=== PATIENT | female | born 1940 | race Caucasian/White ===

== ENCOUNTER 2022-05-19 15:16 | Inpatient (IN) ==
[2022-05-19] MEDS ORDERED: HYDROmorphone 1 MG/1 ML SYRINGE IV STA ×2 (15:52→17:30)
[2022-05-19] MEDS: ONDANSETRON 4 MG/2 ML VIAL IV PRN (16:00)
[2022-05-19] MEDS ORDERED: ONDANSETRON 4 MG/2 ML VIAL IV STA (17:30)
[2022-05-19 17:35] LABS: Basophils # 0.1 10*3/uL (0.0-0.2); Basophils % 0.4 % (0.0-0.8); Eosinophils # 0.3 10*3/uL (0.0-0.87); Eosinophils % 1.6 % (0.00-10.9); Hematocrit 35.3 VOL% (35.7-47.0); Hemoglobin 12.4 GM/DL (12.0-16.0); Immature Granulocytes % 1.2 %; Lymphocytes # 2.3 10*3/uL (1.4-4.0); Lymphocytes % 13.5 % (21.3-54.2); Mean Corpuscular HGB Conc 35.1 GM/DL (32-36); Mean Corpuscular Volume 92.7 FL (87-102); Mean Platelet Volume 11.6 FL (9.6-12.0); Neutrophils % 77.3 % (38.7-73.9); Platelet Count 285 T/CUMM (130-400); Red Blood Count 3.81 MC/CUMM (3.8-5.5); White Blood Count 16.8 T/CUMM (4-12)
[2022-05-19 17:43] LABS: Albumin 3.9 G/DL (3.4-5.0); Bilirubin,Total 0.9 MG/DL (0.20-1.00); Calcium 9.7 MG/DL (8.5-10.1); Osmolality,Calculated 267.5 MOS/KG (273-304); Potassium 3.2 MMOL/L (3.5-5.1); Total Protein 7.9 G/DL (6.4-8.2)
[2022-05-19] MEDS ORDERED: ACETAMINOPHEN 325 MG TABLET PO PRN (17:52)
[2022-05-19] MEDS ORDERED: LACTATED RINGERS 1,000 ML IV SCH (18:00)
[2022-05-19] MEDS ORDERED: POTASSIUM CHLORIDE 20 MEQ TABLET PO ONE (18:15)
[2022-05-19 18:27] LABS: Thyroid Stimulating Hormone 9.52 uIU/ml (0.358-3.74)
[2022-05-19] MEDS ORDERED: ERTAPENEM 1,000 MG in SODIUM CHLORIDE 0.9% 100 ML IV SCH (21:00)
[2022-05-19] MEDS: DOCUSATE SODIUM 100 MG CAPSULE PO SCH (22:20)
[2022-05-19] MEDS: POTASSIUM CHLORIDE INJ 40 MEQ in LACTATED RINGERS 1,000 ML IV SCH (23:42)
[2022-05-20] MEDS: MORPHINE 2 MG/1 ML SYRINGE IV PRN ×4 (04:27→22:17)
[2022-05-20 05:44] LABS: Basophils % 0.4 % (0.0-0.8); Eosinophils # 0.3 10*3/uL (0.0-0.87); Eosinophils % 3.1 % (0.00-10.9); Hematocrit 34.6 VOL% (35.7-47.0); Immature Granulocytes % 0.5 %; Immature Granulocytes Absolute 0.05 #; Lymphocytes # 2.1 10*3/uL (1.4-4.0); Lymphocytes % 19.4 % (21.3-54.2); Mean Corpuscular HGB Conc 34.7 GM/DL (32-36); Mean Corpuscular Volume 92.5 FL (87-102); Mean Platelet Volume 10.7 FL (9.6-12.0); Monocytes # 0.9 10*3/uL (0.11-0.8); Monocytes % 8.5 % (1.7-12.7); Neutrophils % 68.1 % (38.7-73.9); Platelet Count 219 T/CUMM (130-400); Red Blood Count 3.74 MC/CUMM (3.8-5.5); Red Cell Distribution Width 12.1 % (9.3-17.3); White Blood Count 10.6 T/CUMM (4-12)
[2022-05-20 05:57] LABS: Calcium 8.9 MG/DL (8.5-10.1); Osmolality,Calculated 268.2 MOS/KG (273-304); Potassium 4.6 MMOL/L (3.5-5.1)
[2022-05-20] MEDS ORDERED: CLINDAMYCIN INJ 900 MG/50 ML PREMIX IV ONE (06:41)
[2022-05-20] MEDS: POTASSIUM CHLORIDE INJ 40 MEQ in LACTATED RINGERS 1,000 ML IV SCH (07:36)
[2022-05-20] MEDS: DOCUSATE SODIUM 100 MG CAPSULE PO SCH ×2 (09:19→20:30)
[2022-05-20] MEDS: PANTOPRAZOLE 40 MG TABLET PO SCH (09:19)
[2022-05-20] MEDS: LACTATED RINGERS 1,000 ML IV SCH ×2 (10:19→18:26)
[2022-05-20] MEDS: ONDANSETRON 4 MG/2 ML VIAL IV PRN ×2 (10:20→18:27)
[2022-05-20] MEDS ORDERED: DEXMEDETOMIDINE 200 MCG/2 ML VIAL ONE (10:33)
[2022-05-20] MEDS ORDERED: LIDOCAINE 1% 5 ML VIAL ONE (10:33)
[2022-05-20] MEDS ORDERED: DEXAMETHASONE 4 MG/1 ML VIAL ONE ×3 (10:33→11:58)
[2022-05-20] MEDS ORDERED: ROPIVACAINE 0.5% 30 ML VIAL ONE (10:33)
[2022-05-20] MEDS ORDERED: ACETAMINOPHEN INJ 1,000 MG/100 ML VIAL IV ONE ×2 (10:43→11:57)
[2022-05-20] MEDS ORDERED: LIDOCAINE 2% 5 ML VIAL ONE (10:43)
[2022-05-20] MEDS ORDERED: propofoL 200 MG/20 ML VIAL IV ONE (10:43)
[2022-05-20] MEDS ORDERED: SEVOFLURANE 1 UNIT/15 MINUTE INH ONE ×2 (10:43→12:31)
[2022-05-20] MEDS ORDERED: ONDANSETRON 4 MG/2 ML VIAL ONE (10:43)
[2022-05-20] MEDS ORDERED: diphenhydrAMINE CAP 25 MG CAPSULE PO PRN (11:20)
[2022-05-20] MEDS ORDERED: LACTATED RINGERS 1,000 ML IV SCH ×2 (11:30)
[2022-05-20] MEDS ORDERED: ePHEDrine 50 MG/ML VIAL ONE (11:39)
[2022-05-20] MEDS ORDERED: LACTATED RINGERS 1,000 ML IV ONE (12:25)
[2022-05-20] MEDS ORDERED: amLODIPine 5 MG TABLET PO ONE (13:30)
[2022-05-21 04:53] LABS: Basophils % 0.2 % (0.0-0.8); Eosinophils % 0.1 % (0.00-10.9); Hematocrit 31.9 VOL% (35.7-47.0); Immature Granulocytes % 0.5 %; Immature Granulocytes Absolute 0.06 #; Lymphocytes # 0.8 10*3/uL (1.4-4.0); Lymphocytes % 6.2 % (21.3-54.2); Mean Corpuscular HGB Conc 34.5 GM/DL (32-36); Mean Corpuscular Volume 93.8 FL (87-102); Mean Platelet Volume 11.6 FL (9.6-12.0); Monocytes # 0.8 10*3/uL (0.11-0.8); Monocytes % 5.7 % (1.7-12.7); Neutrophils % 87.3 % (38.7-73.9); Platelet Count 208 T/CUMM (130-400); White Blood Count 13.2 T/CUMM (4-12)
[2022-05-21] MEDS: FONDAPARINUX 2.5 MG/0.5 ML SYRINGE SUBCUT SCH (05:45)
[2022-05-21] MEDS: LEVOTHYROXINE 75 MCG TABLET PO SCH (05:45)
[2022-05-21] MEDS: LACTATED RINGERS 1,000 ML IV SCH ×2 (06:24→15:09)
[2022-05-21] MEDS: MORPHINE 2 MG/1 ML SYRINGE IV PRN (07:49)
[2022-05-21] MEDS ORDERED: amLODIPine 5 MG TABLET PO SCH (09:00)
[2022-05-21] MEDS: PANTOPRAZOLE 40 MG TABLET PO SCH (09:30)
[2022-05-21] MEDS: DOCUSATE SODIUM 100 MG CAPSULE PO SCH ×2 (09:30→20:43)
[2022-05-21] MEDS: MEMANTINE 10 MG TABLET PO SCH (20:43)
[2022-05-21] MEDS: SIMVASTATIN 10 MG TABLET PO SCH (20:43)
[2022-05-21] MEDS: QUEtiapine 25 MG TABLET PO SCH (20:43)
[2022-05-22] MEDS: LACTATED RINGERS 1,000 ML IV SCH ×2 (01:48→20:22)
[2022-05-22] MEDS: FONDAPARINUX 2.5 MG/0.5 ML SYRINGE SUBCUT SCH (05:26)
[2022-05-22] MEDS: LEVOTHYROXINE 75 MCG TABLET PO SCH (05:34)
[2022-05-22] MEDS: LEVOTHYROXINE 50 MCG TABLET PO SCH (05:34)
[2022-05-22 05:39] LABS: Basophils # 0.1 10*3/uL (0.0-0.2); Basophils % 0.5 % (0.0-0.8); Eosinophils # 0.5 10*3/uL (0.0-0.87); Eosinophils % 4.4 % (0.00-10.9); Hematocrit 31.3 VOL% (35.7-47.0); Hemoglobin 10.7 GM/DL (12.0-16.0); Immature Granulocytes % 0.5 %; Immature Granulocytes Absolute 0.05 #; Lymphocytes % 27.9 % (21.3-54.2); Mean Corpuscular HGB Conc 34.2 GM/DL (32-36); Mean Corpuscular Volume 95.4 FL (87-102); Mean Platelet Volume 11.1 FL (9.6-12.0); Monocytes # 0.9 10*3/uL (0.11-0.8); Monocytes % 8.6 % (1.7-12.7); Neutrophils % 58.1 % (38.7-73.9); Platelet Count 190 T/CUMM (130-400); Red Blood Count 3.28 MC/CUMM (3.8-5.5); Red Cell Distribution Width 12.5 % (9.3-17.3); White Blood Count 10.7 T/CUMM (4-12)
[2022-05-22 05:45] LABS: Calcium 8.4 MG/DL (8.5-10.1); Osmolality,Calculated 275.4 MOS/KG (273-304); Potassium 3.8 MMOL/L (3.5-5.1)
[2022-05-22] MEDS: DOCUSATE SODIUM 100 MG CAPSULE PO SCH ×2 (08:17→20:21)
[2022-05-22] MEDS: MEMANTINE 10 MG TABLET PO SCH ×2 (08:18→20:21)
[2022-05-22] MEDS: busPIRone 5 MG TABLET PO SCH (08:18)
[2022-05-22] MEDS: PANTOPRAZOLE 40 MG TABLET PO SCH (08:18)
[2022-05-22] MEDS: amLODIPine 5 MG TABLET PO SCH (08:18)
[2022-05-22] MEDS: DONEPEZIL 10 MG TABLET PO SCH (08:18)
[2022-05-22] MEDS: KETOROLAC 15 MG/1 ML VIAL IV PRN ×2 (08:19→17:07)
[2022-05-22] MEDS: PROPRANOLOL 80 MG PO SCH (09:36)
[2022-05-22] MEDS: LOSARTAN 50 MG TABLET PO SCH (12:42)
[2022-05-22] MEDS: MAGNESIUM HYDROXIDE SUSP 30 ML UDCUP PO PRN (20:21)
[2022-05-22] MEDS: QUEtiapine 25 MG TABLET PO SCH (20:21)
[2022-05-22] MEDS: SIMVASTATIN 10 MG TABLET PO SCH (20:21)
[2022-05-23] MEDS: FONDAPARINUX 2.5 MG/0.5 ML SYRINGE SUBCUT SCH (05:07)
[2022-05-23] MEDS: MAGNESIUM HYDROXIDE SUSP 30 ML UDCUP PO PRN (05:07)
[2022-05-23] MEDS: LEVOTHYROXINE 75 MCG TABLET PO SCH (05:46)
[2022-05-23] MEDS: LEVOTHYROXINE 50 MCG TABLET PO SCH (05:46)
[2022-05-23] MEDS: amLODIPine 5 MG TABLET PO SCH (08:31)
[2022-05-23] MEDS: PANTOPRAZOLE 40 MG TABLET PO SCH (08:31)
[2022-05-23] MEDS: DONEPEZIL 10 MG TABLET PO SCH (08:31)
[2022-05-23] MEDS: DOCUSATE SODIUM 100 MG CAPSULE PO SCH ×2 (08:31→20:34)
[2022-05-23] MEDS: LOSARTAN 50 MG TABLET PO SCH (08:31)
[2022-05-23] MEDS: MEMANTINE 10 MG TABLET PO SCH ×2 (08:31→20:34)
[2022-05-23] MEDS: busPIRone 5 MG TABLET PO SCH (08:31)
[2022-05-23] MEDS: PROPRANOLOL 80 MG PO SCH (09:03)
[2022-05-23] MEDS: QUEtiapine 25 MG TABLET PO SCH (20:33)
[2022-05-23] MEDS: SIMVASTATIN 10 MG TABLET PO SCH (20:34)
[2022-05-24] MEDS: LEVOTHYROXINE 75 MCG TABLET PO SCH (06:40)
[2022-05-24] MEDS: FONDAPARINUX 2.5 MG/0.5 ML SYRINGE SUBCUT SCH (06:40)
[2022-05-24] MEDS: LEVOTHYROXINE 50 MCG TABLET PO SCH (06:41)
[2022-05-24] MEDS: MEMANTINE 10 MG TABLET PO SCH (08:33)
[2022-05-24] MEDS: PANTOPRAZOLE 40 MG TABLET PO SCH (08:33)
[2022-05-24] MEDS: LOSARTAN 50 MG TABLET PO SCH (08:33)
[2022-05-24] MEDS: amLODIPine 5 MG TABLET PO SCH (08:33)
[2022-05-24] MEDS: DONEPEZIL 10 MG TABLET PO SCH (08:33)
[2022-05-24] MEDS: busPIRone 5 MG TABLET PO SCH (08:33)
[2022-05-24] MEDS: DOCUSATE SODIUM 100 MG CAPSULE PO SCH (09:40)
[2022-05-24] MEDS: PROPRANOLOL 80 MG PO SCH (09:41)
[2022-05-24 11:16] VITALS: BP 131/55
== END 2022-05-24 15:01 | disposition home health service (06) | DRG 511 ==
LOC: N.ED 15:16 → SUATTDRO 17:52 → N.EDINP 17:52 → N.3E 19:05
PROVIDERS: ADMIT Internal Medicine; ATTEND Internal Medicine Geriatric Medicine